=== PATIENT | female | born 1935 | race African-American/Black ===

== ENCOUNTER 2018-08-15 06:24 | Inpatient (IN) | payer MEDICARE, OTHER ==
[2018-08-15] VITALS (7 sets, daily range): BP systolic 113–187; BP diastolic 56–100
[~2018-08-15] VITALS: Ht 162.6 cm; Wt 64.5 kg
[~2018-08-15 06:24] MED LIST: AMLO5TAB88 PO; ASPI-1160 PO; ATOR10TA PO; CLON0.1T PO; Docusate Sodium PO; Ergocalciferol PO; Furosemide PO; LIDO700A TOP; Lisinopril PO; METO-539 PO; OXYC-662 PO; Potassium Chloride PO
[2018-08-15] MEDS ORDERED: AMLO5TAB88 PO (07:49)
[2018-08-15] MEDS ORDERED: POTA10TA19 MT (07:49)
[2018-08-15 07:59] LABS: HEMATOCRIT 35.5 % (36.0-48.0); HEMOGLOBIN 11.8 g/dL (12.0-16.0); MEAN CORPUSCULAR HEMOGLOBIN 31.1 pg (28.0-32.0); MEAN CORPUSCULAR VOLUME 93.2 fL (81.0-99.0); PLATELET 214 x1000/uL (130-400); RED BLOOD CELL COUNT 3.81 mill/uL (4.2-5.4); RED CELL DISTRIBUTION WIDTH 14.9 % (11.6-14.6)
[2018-08-15] MEDS ORDERED: DIPHENHYDRAMINE 50MG/ML VIAL ONE (08:07)
[2018-08-15] MEDS ORDERED: HYDROCORTISONE SOD SUCCINATE 250 MG/2 ML VIAL ONE (08:07)
[2018-08-15] MEDS ORDERED: GENTAMICIN SULF 40MG/ML 2ML VIAL ONE (08:07)
[2018-08-15 08:08] LABS: INR 1.1; PARTIAL THROMBOPLASTIN TIME 23.5 sec (23.4-31.0); PROTHROMBIN TIME 11.7 sec (9.6-11.0)
[2018-08-15] MEDS ORDERED: FAMOTIDINE 20MG/2ML VIAL IV ONE (08:08)
[2018-08-15] MEDS ORDERED: LIDOCAINE HCL 1% 20ML VIAL (Pyxis) INJ ONE (08:08)
[2018-08-15] MEDS ORDERED: GENTAMICIN/NS IRRIGATION 500 ML IR ONE (08:08)
[2018-08-15] MEDS ORDERED: IOHEXOL-300 100 ML BOTTLE ONE (08:08)
[2018-08-15] MEDS ORDERED: CEFAZOLIN 1000MG PREMIX 100 ML IV ONE (08:09)
[2018-08-15] MEDS ORDERED: IODIXANOL 320MG/ML 100 ML BOTTLE IV ONE (08:24)
[2018-08-15] MEDS ORDERED: FENTANYL CITRATE/PF 50MCG/ML 2ML VIAL ONE (08:29)
[2018-08-15] MEDS ORDERED: MIDAZOLAM HCL 2 MG/2 ML VIAL ONE (08:29)
[2018-08-15] MEDS ORDERED: HYDROCODONE/ACETAMINOPHEN 5/325MG TABLET PO PRN (10:15)
[2018-08-15] MEDS: CEFAZOLIN 1000MG PREMIX 50 ML IV SCH (17:41)
[2018-08-15] MEDS ORDERED: HYDRALAZINE 20MG/ML VIAL IV NR (23:43)
[2018-08-16] VITALS (12 sets, daily range): BP systolic 105–187; BP diastolic 63–104
[2018-08-16] MEDS ORDERED: HYDRALAZINE 20MG/ML VIAL IV ONE
[2018-08-16] MEDS ORDERED: LORAZEPAM 2MG/ML CPJ IV PRN
[2018-08-16] MEDS: CEFAZOLIN 1000MG PREMIX 50 ML IV SCH (01:20)
[2018-08-16] MEDS ORDERED: OXYCODONE HCL 5MG TABLET PO PRN (01:30)
[2018-08-16] MEDS: CLONIDINE 0.1MG TABLET PO SCH ×3 (06:17→22:24)
[2018-08-16 06:51] LABS: HEMATOCRIT. 32.7 % (36.0-48.0); HEMOGLOBIN. 11.5 g/dL (12.0-16.0); MEAN CORPUSCULAR HEMOGLOBIN 32.8 pg (28.0-32.0); PLATELET 161 x1000/uL (130-400); RED BLOOD CELL COUNT 3.51 mill/uL (4.2-5.4)
[2018-08-16] MEDS: LISINOPRIL 40MG TABLET PO SCH (08:23)
[2018-08-16] MEDS: ASPIRIN 81MG EC TABLET PO SCH (08:23)
[2018-08-16] MEDS: FUROSEMIDE 40MG TABLET PO SCH (08:23)
[2018-08-16] MEDS: POTASSIUM CHLORIDE 20MEQ TABLET SR PO SCH (08:23)
[2018-08-16] MEDS: AMLODIPINE 5MG TABLET PO SCH ×2 (08:23→21:06)
[2018-08-16 09:57] LABS: PLATELET ESTIMATE NORMAL
[2018-08-16] MEDS: METOPROLOL TARTRATE 100MG TABLET PO SCH ×2 (10:04→21:04)
[2018-08-16] MEDS ORDERED: HYDRALAZINE 20MG/ML VIAL IV NR (18:40)
[2018-08-16] MEDS: ATORVASTATIN CALCIUM 10MG TABLET PO SCH (21:00)
[2018-08-17] VITALS (12 sets, daily range): BP systolic 111–190; BP diastolic 62–89
[2018-08-17] MEDS: CLONIDINE 0.1MG TABLET PO SCH ×3 (05:49→22:56)
[2018-08-17] MEDS: DOCUSATE SODIUM 100MG CAPSULE PO PRN (08:10)
[2018-08-17] MEDS: POTASSIUM CHLORIDE 20MEQ TABLET SR PO SCH (08:10)
[2018-08-17] MEDS: AMLODIPINE 5MG TABLET PO SCH ×2 (08:10→22:04)
[2018-08-17] MEDS: LISINOPRIL 40MG TABLET PO SCH (08:11)
[2018-08-17] MEDS: ASPIRIN 81MG EC TABLET PO SCH (08:11)
[2018-08-17] MEDS: METOPROLOL TARTRATE 100MG TABLET PO SCH ×2 (09:48→22:04)
[2018-08-17] MEDS: FUROSEMIDE 40MG TABLET PO SCH (10:31)
[2018-08-17] MEDS: DEXT 5%/0.45% NACL 1000ML 1,000 ML IV SCH (18:19)
[2018-08-17] MEDS: ATORVASTATIN CALCIUM 10MG TABLET PO SCH (22:03)
[2018-08-18] VITALS (12 sets, daily range): BP systolic 126–173; BP diastolic 62–109
[2018-08-18] MEDS: CLONIDINE 0.1MG TABLET PO SCH (05:37)
[2018-08-18] MEDS: DEXT 5%/0.45% NACL 1000ML 1,000 ML IV SCH ×2 (06:36→17:35)
[2018-08-18] MEDS: POTASSIUM CHLORIDE 20MEQ TABLET SR PO SCH (08:18)
[2018-08-18] MEDS: AMLODIPINE 5MG TABLET PO SCH (08:18)
[2018-08-18] MEDS: LISINOPRIL 40MG TABLET PO SCH (08:18)
[2018-08-18] MEDS: METOPROLOL TARTRATE 100MG TABLET PO SCH ×2 (08:18→21:44)
[2018-08-18] MEDS: FUROSEMIDE 40MG TABLET PO SCH (08:18)
[2018-08-18] MEDS: ASPIRIN 81MG EC TABLET PO SCH (08:18)
[2018-08-18] MEDS ORDERED: HYDRALAZINE 20MG/ML VIAL IV PRN ×2 (10:45→20:45)
[2018-08-18] MEDS ORDERED: CLONIDINE 0.1MG TABLET PO PRN (10:45)
[2018-08-18] MEDS ORDERED: LOSARTAN POTASSIUM 25 MG TABLET PO SCH (11:00)
[2018-08-18] MEDS ORDERED: CLONIDINE 0.1MG TABLET PO SCH (12:00)
[2018-08-18] MEDS ORDERED: HYDRALAZINE HCL 25MG TABLET PO SCH (14:00)
[2018-08-18] MEDS: CLONIDINE 0.2MG TABLET PO SCH ×2 (15:29→23:00)
[2018-08-18] MEDS: ATORVASTATIN CALCIUM 10MG TABLET PO SCH (21:43)
[2018-08-18] MEDS: AMLODIPINE 10MG TABLET PO SCH (21:45)
[2018-08-18] MEDS: HYDRALAZINE HCL 25MG TABLET PO SCH (23:00)
[2018-08-19] VITALS (13 sets, daily range): BP systolic 119–167; BP diastolic 56–83
[2018-08-19] MEDS: DEXT 5%/0.45% NACL 1000ML 1,000 ML IV SCH ×3 (02:15→21:27)
[2018-08-19] MEDS: CLONIDINE 0.2MG TABLET PO SCH (06:00)
[2018-08-19] MEDS: HYDRALAZINE HCL 25MG TABLET PO SCH (06:00)
[2018-08-19] MEDS: AMLODIPINE 10MG TABLET PO SCH ×2 (08:54→21:13)
[2018-08-19] MEDS: METOPROLOL TARTRATE 100MG TABLET PO SCH (08:58)
[2018-08-19] MEDS: ASPIRIN 81MG EC TABLET PO SCH (08:58)
[2018-08-19] MEDS: DOCUSATE SODIUM 100MG CAPSULE PO PRN (08:58)
[2018-08-19] MEDS: POTASSIUM CHLORIDE 20MEQ TABLET SR PO SCH (08:58)
[2018-08-19 10:45] LABS: BASOPHILS % 0.7 % (0.0-2.0); EOSINOPHILS % 1.9 % (0.0-5.0); HEMATOCRIT. 31.8 % (36.0-48.0); HEMOGLOBIN. 10.6 g/dL (12.0-16.0); LYMPHOCYTES % 15.4 % (20.0-50.0); MEAN CORPUSCULAR HEMOGLOBIN 30.9 pg (28.0-32.0); MEAN CORPUSCULAR VOLUME 93.2 fL (81.0-99.0); MEAN PLATELET VOLUME 9.5 fl (7.4-10.4); MONOCYTES % 9.3 % (2.0-8.0); NEUTROPHILS % 72.7 % (40.0-76.0); PLATELET 178 x1000/uL (130-400); RED BLOOD CELL COUNT 3.42 mill/uL (4.2-5.4); RED CELL DISTRIBUTION WIDTH 14.6 % (11.6-14.6)
[2018-08-19 11:01] LABS: CHLORIDE 110 mEq/L (98-107)
[2018-08-19 11:10] LABS: PHOSPHORUS 3.8 mg/dL (2.5-4.9)
[2018-08-19] MEDS: CLONIDINE 0.1MG TABLET PO SCH ×2 (13:12→22:43)
[2018-08-19] MEDS: ATORVASTATIN CALCIUM 10MG TABLET PO SCH (21:13)
[2018-08-19] MEDS: METOPROLOL TARTRATE 50MG TABLET PO SCH (21:13)
[2018-08-20] VITALS (12 sets, daily range): BP systolic 119–171; BP diastolic 64–96
[2018-08-20] MEDS: DOCUSATE SODIUM 100MG CAPSULE PO PRN (05:13)
[2018-08-20] MEDS: CLONIDINE 0.1MG TABLET PO SCH ×3 (05:14→22:08)
[2018-08-20 05:43] LABS: BASOPHILS % 0.7 % (0.0-2.0); EOSINOPHILS % 2.3 % (0.0-5.0); HEMATOCRIT. 31.2 % (36.0-48.0); HEMOGLOBIN. 10.4 g/dL (12.0-16.0); LYMPHOCYTES % 16.7 % (20.0-50.0); MEAN CORPUSCULAR HEMOGLOBIN 30.8 pg (28.0-32.0); MEAN CORPUSCULAR VOLUME 92.7 fL (81.0-99.0); MEAN PLATELET VOLUME 8.9 fl (7.4-10.4); MONOCYTES % 8.5 % (2.0-8.0); NEUTROPHILS % 71.8 % (40.0-76.0); PLATELET 183 x1000/uL (130-400); RED BLOOD CELL COUNT 3.37 mill/uL (4.2-5.4); RED CELL DISTRIBUTION WIDTH 14.9 % (11.6-14.6)
[2018-08-20 05:56] LABS: PHOSPHORUS 3.7 mg/dL (2.5-4.9)
[2018-08-20] MEDS: METOPROLOL TARTRATE 50MG TABLET PO SCH ×2 (08:19→20:18)
[2018-08-20] MEDS: AMLODIPINE 10MG TABLET PO SCH ×2 (08:19→20:18)
[2018-08-20] MEDS: ASPIRIN 81MG EC TABLET PO SCH (08:19)
[2018-08-20] MEDS: POTASSIUM CHLORIDE 20MEQ TABLET SR PO SCH (08:19)
[2018-08-20 09:32] LABS: CLARITY URINE CLEAR (CLEAR); COLOR URINE YELLOW (YELLOW); KETONES URINE NEGATIVE (NEGATIVE); LEUKOCYTE ESTERASE URINE NEGATIVE (NEGATIVE); NITRITE URINE NEGATIVE (NEGATIVE); OCCULT BLOOD URINE NEGATIVE (NEGATIVE); PH URINE 5.5 (4.5-8.0); PROTEIN URINE 3+ (NEGATIVE); SPECIFIC GRAVITY URINE 1.011 (1.005-1.030); UROBILINOGEN URINE 0.2 E.U./dL (0.2-1.0)
[2018-08-20] MEDS: DEXT 5%/0.45% NACL 1000ML 1,000 ML IV SCH (10:51)
[2018-08-20] MEDS: LACTULOSE 20G/30ML UDC PO SCH ×3 (13:14→20:17)
[2018-08-20] MEDS: POLYETHYLENE GLYCOL 3350 (17GM) 1 DOSE PACK PO SCH (20:17)
[2018-08-20] MEDS: ATORVASTATIN CALCIUM 10MG TABLET PO SCH (20:18)
[2018-08-21] VITALS (15 sets, daily range): BP systolic 126–160; BP diastolic 58–90
[2018-08-21] MEDS: CLONIDINE 0.1MG TABLET PO SCH ×3 (06:17→20:46)
[2018-08-21 06:39] LABS: BASOPHILS % 0.4 % (0.0-2.0); EOSINOPHILS % 0.2 % (0.0-5.0); HEMATOCRIT. 33.1 % (36.0-48.0); MEAN CORPUSCULAR HEMOGLOBIN 30.9 pg (28.0-32.0); MEAN CORPUSCULAR VOLUME 93.2 fL (81.0-99.0); MONOCYTES % 6.5 % (2.0-8.0); NEUTROPHILS % 81.9 % (40.0-76.0); PLATELET 209 x1000/uL (130-400); RED BLOOD CELL COUNT 3.55 mill/uL (4.2-5.4); RED CELL DISTRIBUTION WIDTH 14.5 % (11.6-14.6)
[2018-08-21] MEDS: ASPIRIN 81MG EC TABLET PO SCH (08:21)
[2018-08-21] MEDS: AMLODIPINE 10MG TABLET PO SCH ×2 (08:21→20:45)
[2018-08-21] MEDS ORDERED: HYDRALAZINE HCL 50MG TABLET PO SCH (09:00)
[2018-08-21] MEDS: METOPROLOL TARTRATE 50MG TABLET PO SCH ×2 (10:08→20:46)
[2018-08-21 16:54] LABS: CLARITY URINE CLOUDY (CLEAR); COLOR URINE YELLOW (YELLOW); KETONES URINE NEGATIVE (NEGATIVE); LEUKOCYTE ESTERASE URINE 1+ (NEGATIVE); NITRITE URINE NEGATIVE (NEGATIVE); OCCULT BLOOD URINE TRACE (NEGATIVE); PROTEIN URINE 3+ (NEGATIVE); SPECIFIC GRAVITY URINE 1.015 (1.005-1.030); UROBILINOGEN URINE 0.2 E.U./dL (0.2-1.0)
[2018-08-21] MEDS: ATORVASTATIN CALCIUM 10MG TABLET PO SCH (20:45)
[2018-08-21] MEDS: POLYETHYLENE GLYCOL 3350 (17GM) 1 DOSE PACK PO SCH (20:47)
[2018-08-21] MEDS ORDERED: HYDRALAZINE HCL 25MG TABLET PO SCH (21:00)
[2018-08-22] VITALS (8 sets, daily range): BP systolic 143–168; BP diastolic 71–89
[2018-08-22] MEDS: CLONIDINE 0.1MG TABLET PO SCH (05:35)
[2018-08-22] MEDS: ASPIRIN 81MG EC TABLET PO SCH (09:44)
[2018-08-22] MEDS: AMLODIPINE 10MG TABLET PO SCH (09:45)
[2018-08-22] MEDS: METOPROLOL TARTRATE 50MG TABLET PO SCH (09:45)
[2018-08-22] MEDS ORDERED: HYDRALAZINE HCL 50MG TABLET PO SCH (10:00)
[2018-08-22 10:40] LABS: EOSINOPHILS % 0.9 % (0.0-5.0); HEMATOCRIT. 30.5 % (36.0-48.0); HEMOGLOBIN. 10.1 g/dL (12.0-16.0); LYMPHOCYTES % 9.5 % (20.0-50.0); MEAN CORPUSCULAR HEMOGLOBIN 30.6 pg (28.0-32.0); MEAN CORPUSCULAR VOLUME 92.7 fL (81.0-99.0); MEAN PLATELET VOLUME 8.6 fl (7.4-10.4); MONOCYTES % 9.4 % (2.0-8.0); NEUTROPHILS % 79.2 % (40.0-76.0); PLATELET 211 x1000/uL (130-400); RED BLOOD CELL COUNT 3.29 mill/uL (4.2-5.4); RED CELL DISTRIBUTION WIDTH 14.3 % (11.6-14.6)
[2018-08-22] MEDS ORDERED: MEGESTROL ACETATE 400 MG/10 ML UDC PO SCH (13:00)
== END 2018-08-22 16:02 | DRG 242 ==
LOC: CCL 06:24 → 3WST 06:25
PROVIDERS: ADMIT Internal Medicine Clinical Cardiac Electrophysiology; ATTEND Internal Medicine Clinical Cardiac Electrophysiology
PROC: B5171ZZ Fluoroscopy of Left Subclavian Vein using Low Osmolar Contrast (ICD-10-PCS; principal; 2018-08-15)
PROC: 0JH606Z Insertion of Pacemaker, Dual Chamber into Chest Subcutaneous Tissue and Fascia, Open Approach (ICD-10-PCS; 2018-08-15)
PROC: 02H63JZ Insertion of Pacemaker Lead into Right Atrium, Percutaneous Approach (ICD-10-PCS; 2018-08-15)
PROC: 02HK3JZ Insertion of Pacemaker Lead into Right Ventricle, Percutaneous Approach (ICD-10-PCS; 2018-08-15)
PROC: 02HV33Z Insertion of Infusion Device into Superior Vena Cava, Percutaneous Approach (ICD-10-PCS; 2018-08-19)
PROC: B548ZZA Ultrasonography of Superior Vena Cava, Guidance (ICD-10-PCS; 2018-08-19)
PROC: B5181ZA Fluoroscopy of Superior Vena Cava using Low Osmolar Contrast, Guidance (ICD-10-PCS; 2018-08-19)
DX: I44.1 Atrioventricular block, second degree (principal); G92 Toxic encephalopathy; N17.9 Acute kidney failure, unspecified; N18.4 Chronic kidney disease, stage 4 (severe); E87.0 Hyperosmolality and hypernatremia; D64.9 Anemia, unspecified; E78.00 Pure hypercholesterolemia, unspecified; E78.5 Hyperlipidemia, unspecified; F03.90 Unspecified dementia, unspecified severity, without behavioral disturbance, psychotic disturbance, mood disturbance, and anxiety; G89.4 Chronic pain syndrome; I25.10 Atherosclerotic heart disease of native coronary artery without angina pectoris; I65.29 Occlusion and stenosis of unspecified carotid artery; M19.90 Unspecified osteoarthritis, unspecified site; M48.02 Spinal stenosis, cervical region; M48.061 Spinal stenosis, lumbar region without neurogenic claudication; R32 Unspecified urinary incontinence; I12.9 Hypertensive chronic kidney disease with stage 1 through stage 4 chronic kidney disease, or unspecified chronic kidney disease; E87.5 Hyperkalemia; R26.9 Unspecified abnormalities of gait and mobility; Z82.49 Family history of ischemic heart disease and other diseases of the circulatory system; I25.2 Old myocardial infarction; Z95.5 Presence of coronary angioplasty implant and graft
CPT/HCPCS: 33208; 36415; 36569; 71045; 75820; 76770; 76937; 80048; 82140; 83735; 83880; 84100; 85027; 92523; 92610; 93005; 97110; 97116; 97163; 97166; 97530; A4565; A6261; C1725; C1785; C1892; C1893; C1898; J0360; J0690; J1200; J1580; J1720; J2060; J2250; J3010; J3490; J7040; J7050; Q9967